=== PATIENT | female | born 2000 | race Caucasian/White ===

== ENCOUNTER → 2020-04-05 14:10 | Observation (INO) ==
[2020-04-05 12:27] LABS: Protein/Creatinine Ratio,Urine 0.11 mg/mg (0.00-0.20)
[2020-04-05 13:07] LABS: Basophils % 0.1 %; Eosinophils # 0.1 K/mcL (0.0-0.6); Eosinophils % 0.6 %; Hematocrit 37.8 % (35.3-44.9); Immature Granulocytes % 0.4 % (0-4); Lymphocytes # 1.4 K/mcL (0.6-4.6); Lymphocytes % 18.2 %; Mean Corpuscular HGB Conc 31.7 g/dL (31.6-35.5); Mean Platelet Volume 11.1 fL (9.4-12.4); Monocytes # 0.6 K/mcL (0.0-1.3); Monocytes % 7.8 %; Neutrophils # 5.7 K/mcL (1.6-8.9); Platelet Count 181 K/mcL (140-400); Red Blood Count 4.61 M/mcL (3.82-4.97); Segmented Neutrophils % 72.9 %; White Blood Count 7.9 K/mcL (4.3-11.1)
[2020-04-05 13:25] LABS: Alanine Aminotransferase 24 Units/L (7-52); Aspartate Amino Transferase 21 Units/L (13-39); BUN/Creatinine Ratio 12 (6-26); Blood Urea Nitrogen 7 mg/dL (6-20); Lactate Dehydrogenase 167 Units/L (140-271); Uric Acid 5.6 mg/dL (2.3-7.6); eGFR For African Americans > 60 (> 60); eGFR For Non-African Americans > 60 (> 60)
== END | disposition home or self-care (01) ==
LOC: 1NENULAB
PROVIDERS: ADMIT Obstetrics & Gynecology; ATTEND Obstetrics & Gynecology

== ENCOUNTER 2020-04-13 08:00 | Inpatient (IN) ==
[2020-04-13] MEDS ORDERED: Metoclopramide 10 MG/2 ML VIAL IVP PRN (08:16)
[2020-04-13] MEDS ORDERED: Famotidine 20 MG/2 ML VIAL IVP PRN (08:16)
[2020-04-13] MEDS ORDERED: Lidocaine 1% 20 ML MDV ID PRN (08:16)
[2020-04-13] MEDS ORDERED: Naloxone 0.4 MG/ML INJ IVP PRN ×2 (08:16→12:08)
[2020-04-13] MEDS ORDERED: Lidocaine 1% 20 ML MDV INFILT PRN (08:16)
[2020-04-13] MEDS ORDERED: Oxytocin 20 units/ LR 1000 mL 20 UNIT/1,000 ML BAG IVC SCH ×2 (08:30→23:47)
[2020-04-13] MEDS ORDERED: Ringers Solution, Lactated 1,000 ML IVC SCH (08:30)
[2020-04-13 09:31] LABS: Amphetamine Screen,Urine Negative ng/mL (Cutoff=1000); Barbiturate Screen,Urine Negative ng/mL (Cutoff=200); Benzodiazepines Screen,Urine Negative ng/mL (Cutoff=200); Cannabinoid Screen,Urine Negative ng/mL (Cutoff = 50); Cocaine Screen,Urine Negative ng/mL (Cutoff= 300); Opiate Screen,Urine Negative ng/mL (Cutoff=300); Phencyclidine Screen,Urine Negative ng/mL (Cutoff=25)
[2020-04-13 09:33] LABS: Basophils % 0.1 %; Eosinophils # 0.1 K/mcL (0.0-0.6); Eosinophils % 0.6 %; Hematocrit 35.3 % (35.3-44.9); Hemoglobin 11.5 g/dL (11.5-15.4); Immature Granulocytes % 0.3 % (0-4); Lymphocytes # 1.4 K/mcL (0.6-4.6); Lymphocytes % 16.1 %; Mean Corpuscular HGB Conc 32.6 g/dL (31.6-35.5); Mean Corpuscular Hemoglobin 26.7 pg (28.0-33.3); Mean Corpuscular Volume 82.1 fL (83.0-100.0); Mean Platelet Volume 11.3 fL (9.4-12.4); Monocytes # 0.6 K/mcL (0.0-1.3); Monocytes % 6.7 %; Neutrophils # 6.6 K/mcL (1.6-8.9); Platelet Count 157 K/mcL (140-400); Segmented Neutrophils % 76.2 %; White Blood Count 8.6 K/mcL (4.3-11.1)
[2020-04-13] MEDS ORDERED: miSOPROStoL 25 MCG TABLET PO PRN (09:36)
[2020-04-13] MEDS ORDERED: *HR* FentaNYL (PF) 100 MCG/2 ML VIAL IVP PRN (09:55)
[2020-04-13] MEDS ORDERED: Ondansetron 4 MG/2 ML VIAL IVP PRN ×2 (09:55→12:08)
[2020-04-13] MEDS ORDERED: EPHEDrine 50 MG/ML VIAL IVP PRN (12:03)
[2020-04-13] MEDS ORDERED: Ropivacaine/PF 0.2% 20 ML VIAL EP ONE (12:08)
[2020-04-13] MEDS ORDERED: Epidural Premix (fent/bupiv) 110 ML EP SCH (12:15)
[2020-04-13] MEDS ORDERED: Lanolin 7 G OINT...G. TP PRN (23:47)
[2020-04-13] MEDS ORDERED: Oxytocin 20 units/ LR 1000 mL 20 UNIT/1,000 ML BAG IVC ONE (23:47)
[2020-04-13] MEDS ORDERED: Benzocaine/Menthol 56 GM AEROSOL SPRAY TP PRN (23:47)
[2020-04-13] MEDS ORDERED: Rho Immune Globulin 1,500 UNIT SYRINGE IM PRN (23:47)
[2020-04-14] MEDS: Acetaminophen 325 MG TABLET PO PRN ×3 (08:39→19:49)
[2020-04-14] MEDS ORDERED: Prenatal Vit/FA 1 EACH TABLET PO SCH (09:00)
[2020-04-14 23:27] VITALS: BP 133/77
== END 2020-04-14 23:58 | disposition home or self-care (01) | DRG 560 ==
LOC: 1NENULAB 08:08 → 1NENUOBS 04-14 02:50
PROVIDERS: ADMIT Obstetrics & Gynecology; ATTEND Obstetrics & Gynecology